=== PATIENT | female | born 1995 | race Two or more races ===

== ENCOUNTER 2022-04-07 21:40 | Emergency (ER) | payer OTHER ==
[~2022-04-07] VITALS: Ht 154.9 cm; Wt 61.2 kg
[2022-04-07] MEDS ORDERED: PRENATALES (22:07)
[2022-04-07] MEDS ORDERED: ACIDO FOLICO (22:08)
== END 2022-04-08 03:06 ==
LOC: ER 21:40
DX: O46.91 Antepartum hemorrhage, unspecified, first trimester (principal); Z3A.08 8 weeks gestation of pregnancy

== ENCOUNTER 2022-10-08 13:31 | Emergency (ER) | payer OTHER ==
[~2022-10-08] VITALS: Ht 154.9 cm; Wt 79.4 kg
[~2022-10-08 13:31] MED LIST: ACIDO FOLICO; PRENATALES
== END 2022-10-08 18:23 | disposition home or self-care (01) ==
LOC: ER 13:31
DX: O99.513 Diseases of the respiratory system complicating pregnancy, third trimester (principal); Z3A.35 35 weeks gestation of pregnancy; Z20.822 Contact with and (suspected) exposure to COVID-19

== ENCOUNTER 2022-10-21 23:10 | Inpatient (IN) | payer OTHER ==
[~2022-10-21] VITALS: Ht 154.9 cm; Wt 3.2 kg
[2022-10-24] MEDS ORDERED: PRENATAL + DHA1 EAC1 (08:49)
[2022-10-25] MEDS ORDERED: IBUPROFEN800 MG PO (08:18)
== END 2022-10-25 13:34 | disposition home or self-care (01) | DRG 788 ==
LOC: OBS/DEL 23:10 → OB/GYN 10-22 11:46 → LDR 10-22 11:46 → O/R 10-22 14:01 → OB/GYN 10-22 14:58
PROVIDERS: ADMIT Specialist; ATTEND Specialist
PROC: 4A1HXCZ Monitoring of Products of Conception, Cardiac Rate, External Approach (ICD-10-PCS; 2022-10-22)
PROC: 10D00Z1 Extraction of Products of Conception, Low, Open Approach (ICD-10-PCS; principal; 2022-10-22 12:00)
DX: O36.8330 Maternal care for abnormalities of the fetal heart rate or rhythm, third trimester, not applicable or unspecified (principal); Z3A.37 37 weeks gestation of pregnancy; Z37.0 Single live birth; Z20.822 Contact with and (suspected) exposure to COVID-19